=== PATIENT | male | born 1940 | race Caucasian/White ===

== ENCOUNTER 2016-11-02 09:17 | Emergency (ER) | payer OTHER ==
[~2016-11-02] VITALS: Ht 175.3 cm; Wt 64.0 kg
[2016-11-02 10:10] LABS: BASOPHIL % 0.4 % (0-2); PLATELET COUNT 153 x10^3mcL (130-400)
[2016-11-02 10:13] LABS: RED CELL DISTRIBUTION WIDTH 15.2 % (11.5-14.5)
[2016-11-02 11:10] VITALS: BP 170/66
== END 2016-11-02 11:19 | disposition home or self-care (01) ==
LOC: ED 09:17
PROVIDERS: Emergency Medicine
DX: R04.0 Epistaxis (principal); Z79.51 Long term (current) use of inhaled steroids; I10 Essential (primary) hypertension
CPT/HCPCS: 36415

== ENCOUNTER 2016-11-04 07:52 | Emergency (ER) | payer OTHER ==
[~2016-11-04] VITALS: Ht 175.3 cm; Wt 62.8 kg
[2016-11-04 08:57] VITALS: BP 171/66
== END 2016-11-04 08:57 | disposition home or self-care (01) ==
LOC: ED 07:52
DX: R04.0 Epistaxis (principal); J44.9 Chronic obstructive pulmonary disease, unspecified; I12.9 Hypertensive chronic kidney disease with stage 1 through stage 4 chronic kidney disease, or unspecified chronic kidney disease; N18.9 Chronic kidney disease, unspecified; Z95.1 Presence of aortocoronary bypass graft; Z88.8 Allergy status to other drugs, medicaments and biological substances; Z90.49 Acquired absence of other specified parts of digestive tract

== ENCOUNTER 2016-12-26 19:29 | Emergency (ER) | payer OTHER ==
[~2016-12-26] VITALS: Ht 175.3 cm; Wt 77.6 kg
[2016-12-26 22:02] VITALS: BP 164/64
== END 2016-12-26 22:02 | disposition home or self-care (01) ==
LOC: ED 19:29
DX: I16.0 Hypertensive urgency (principal); R04.0 Epistaxis; J44.9 Chronic obstructive pulmonary disease, unspecified; Z88.8 Allergy status to other drugs, medicaments and biological substances